=== PATIENT | female | born 1975 ===

== ENCOUNTER 2024-08-19 05:08 | Day surgery (SDC) | payer OTHER ==
[2024-08-16 08:47] VITALS: BP 110/70
[2024-08-16 08:55] LABS: URINE APPEARANCE Clear; URINE BILIRRUBIN Negative (NEGATIVE); URINE BLOOD Negative; URINE COLOR Yellow; URINE GLUCOSE Negative (NEGATIVE); URINE KETONE Negative (NEGATIVE); URINE LEUKOCYTE Small; URINE NITRATE Negative; URINE PROTEIN Negative (NEGATIVE)
[2024-08-16 08:55] LABS: HEMATOCRIT 32.3 % (36.0-45.00); HEMOGLOBIN 10.6 g/dL (12.0-15.00); MEAN CELL VOLUME 82.6 fL (80.00-100.00); MEAN CORPUSCULAR HEMOGLOBIN 27.2 pg (27.00-32.0); MEAN CORPUSCULAR HGB CONC 32.9 g/dl (32.0-36.0); PLATELET COUNT 250 K/uL (150-450); RED BLOOD COUNT 3.92 M/uL (4.00-6.00); RED CELL DISTRIBUTION WIDTH 13.3 % (11.5-14.5)
[2024-08-16 08:57] LABS: URINE BACTERIA 1488.3 uL (0.0-1933); URINE EPITHELIAL CELLS 85.6 uL (0.0-38.8); URINE RBC 6.7 uL (0.0-20.8); URINE WBC 41.3 uL (0.0-23.2)
[2024-08-16 09:14] LABS: PARTIAL THROMBOPLASTIN TIME 27.9 SECONDS (22.0-34.0); PROTHROMBIN TIME 10.9 SECONDS (9.0-11.5)
[2024-08-16 10:36] LABS: ALBUMIN 3.7 gm/dL (3.4-5.0); BILIRUBIN TOTAL 0.34 mg/dL (0.3-1.2); CALCIUM 8.7 mg/dL (8.5-10.1); CREATININE SERUM 0.67 mg/dL (0.55-1.02); GFR 93.94; GLOBULINA 3.1 G/DL (2.4-3.5); POTASSIUM 4.25 mEq/L (3.5-5.1); TOTAL PROTEIN 6.8 gm/dL (6.4-8.2)
[~2024-08-19] VITALS: Ht 154.9 cm; Wt 78.5 kg
[~2024-08-19 05:08] MED LIST: ZOLOFT50 MG PO
[2024-08-19] MEDS ORDERED: POVIDONE-IODINE 118 ML BOTT TOP ONE (07:22)
[2024-08-19] MEDS ORDERED: ONDANSETRON HCL 2 MG/ML VIAL IV ONE (08:15)
[2024-08-19] MEDS ORDERED: ONDANSETRON HCL 2 MG/ML VIAL ONE (09:19)
== END 2024-08-19 12:35 | disposition home or self-care (01) ==
LOC: CIR.AMB 05:08
PROVIDERS: ATTEND Obstetrics & Gynecology
DX: N84.0 Polyp of corpus uteri (principal); N93.8 Other specified abnormal uterine and vaginal bleeding